=== PATIENT | female | born 1995 | race Caucasian/White ===

== ENCOUNTER 2016-04-30 08:12 | Emergency (ER) | payer OTHER, MEDICAID ==
[~2016-04-30] VITALS: Ht 165.1 cm; Wt 48.5 kg
[~2016-04-30 08:12] MED LIST: INSLANTI SC; INSLISPI SC; METH10T PO
[2016-04-30] MEDS ORDERED: SODIUM CHLORIDE 0.9% 1,000 ML IV ONE (09:36)
[2016-04-30] MEDS ORDERED: cefTRIAXone 1GM/50ML D5W 50 ML IV ONE (09:45)
[2016-04-30] MEDS ORDERED: metroNIDAZOLE 500 MG TAB PO ONE (09:45)
[2016-04-30] MEDS ORDERED: InsuLIN REG 1unit/0.01ml Soln (100units/ml) IV ONE (09:45)
[2016-04-30 13:31] VITALS: BP 97/64
[2016-04-30] MEDS ORDERED: KETOROLAC TROMETH 30 MG/ML 1ML VIAL IV ONE (13:45)
[2016-04-30] MEDS ORDERED: InsuLIN REG 1unit/0.01ml Soln (100units/ml) SC ONE (13:45)
== END 2016-04-30 14:56 | disposition home or self-care (01) ==
LOC: ER 08:12
DX: K02.9 Dental caries, unspecified (principal); E11.65 Type 2 diabetes mellitus with hyperglycemia; Z79.4 Long term (current) use of insulin; F17.210 Nicotine dependence, cigarettes, uncomplicated; Z79.899 Other long term (current) drug therapy
CPT/HCPCS: 82962; 96365; 96372; 96375; 99284; J0696; J1815; J1885; J7030

== ENCOUNTER 2016-05-13 10:44 | Emergency (ER) | payer MEDICAID ==
[~2016-05-13] VITALS: Ht 170.2 cm; Wt 48.5 kg
[2016-05-13 11:47] LABS: Basophils # (auto) 0 uL; Basophils % (auto) 0.4 % (0.0-2.0); DEFINITIVE VIEW TRANSMISSION; Eosinophils # (auto) 0 uL; Eosinophils % (auto) 0.1 % (0.0-7.0); Hematocrit 43.5 % (36.0-46.0); Hemoglobin 13.8 g/dL (12.2-16.2); Lymphocytes # (auto) 1.8 uL; Lymphocytes % (auto) 17.9 % (10.0-50.0); Mean Corpuscular Hemoglobin 26.3 pg (28.0-32.0); Mean Corpuscular Hgb Conc. 31.7 g/dL (32.0-36.0); Mean Corpuscular Volume 82.9 fL (80.0-100.0); Mean Platelet Volume 6.6 fL (7.4-10.4); Monocytes # (auto) 0.2 uL; Neutrophils # (auto) 7.8 uL; Neutrophils % (auto) 79.6 % (37.0-80.0); Platelet Count (auto) 440 10^3/uL (140-450); Red Cell Distribution Width 13.6 % (11.6-16.0); White Blood Cell 9.8 10^3/uL (4.4-10.8)
[2016-05-13 12:07] LABS: Albumin 3.3 g/dL (3.4-5.0); BUN/Creatinine Ratio 16.7; Bilirubin, Total 0.2 mg/dL (0.2-1.0); Magnesium 1.6 mg/dL (1.6-2.6); Potassium 4.3 mmol/L (3.5-5.1); Total Protein 8.5 g/dL (6.4-8.2)
[2016-05-13] MEDS ORDERED: KETOROLAC TROMETH 30 MG/ML 1ML VIAL IV ONE (16:45)
[2016-05-13] MEDS ORDERED: SODIUM CHLORIDE 0.9% 1,000 ML IV ONE (16:45)
[2016-05-13 17:00] LABS: Urine Bilirubin Negative (Negative); Urine Blood Negative /uL (Negative); Urine Color Yellow (Yellow); Urine Ketone TRACE (Negative); Urine Nitrite Negative (Negative); Urine RBC <1 /hpf (0 - 4); Urine Squamous Epithelial Cell FEW /hpf (<5); Urine Urobilinogen Normal (Negative)
[2016-05-13 18:08] LABS: Urine Glucose 4+ mg/dL (Normal)
[2016-05-13] MEDS ORDERED: LORazepam 2MG/ML-1ML VIAL IV ONE (18:30)
[2016-05-13 19:14] VITALS: BP 102/70
== END 2016-05-13 20:16 | disposition home or self-care (01) ==
LOC: EDUNIT# 10:44 → ER 10:45
DX: E11.65 Type 2 diabetes mellitus with hyperglycemia (principal); F41.9 Anxiety disorder, unspecified; Z79.899 Other long term (current) drug therapy; Z79.4 Long term (current) use of insulin; F17.210 Nicotine dependence, cigarettes, uncomplicated; R68.84 Jaw pain
CPT/HCPCS: 36415; 70486; 80053; 81001; 83735; 84702; 85025; 85652; 96361; 96374; 96375; 99285; J1885; J2060; J7030

== ENCOUNTER 2017-11-13 10:12 | Emergency (ER) | payer MEDICAID, OTHER ==
[~2017-11-13] VITALS: Ht 165.1 cm; Wt 57.6 kg
[2017-11-13 10:38] VITALS: BP 128/85
[2017-11-13] MEDS ORDERED: LIDOCAINE 1% HCL (LOCAL ANESTH.) INJ 20ML MDV IJ ONE (11:15)
[2017-11-13] MEDS ORDERED: LIDOCAINE 1% (LOCAL ANESTH.) PF 5ml SDV ONE (11:19)
== END 2017-11-13 11:47 | disposition home or self-care (01) ==
LOC: ER 10:12
DX: L02.416 Cutaneous abscess of left lower limb (principal); F17.210 Nicotine dependence, cigarettes, uncomplicated; E11.9 Type 2 diabetes mellitus without complications
CPT/HCPCS: 10060

== ENCOUNTER 2017-11-16 08:54 | Emergency (ER) | payer OTHER ==
[~2017-11-16] VITALS: Ht 165.1 cm; Wt 57.6 kg
[2017-11-16 10:30] VITALS: BP 101/59
[2017-11-16] MEDS ORDERED: NEOMYCIN-BACITRACIN-POLYM UNITDOSE PKG TOP OINT TOP ONE (10:30)
== END 2017-11-16 10:53 | disposition home or self-care (01) ==
LOC: ER 08:54
DX: L02.416 Cutaneous abscess of left lower limb (principal); E10.65 Type 1 diabetes mellitus with hyperglycemia; F11.20 Opioid dependence, uncomplicated; F17.210 Nicotine dependence, cigarettes, uncomplicated; Z79.4 Long term (current) use of insulin; Z79.899 Other long term (current) drug therapy

== ENCOUNTER 2018-02-05 07:33 | Emergency (ER) | payer MEDICAID ==
[~2018-02-05] VITALS: Ht 165.1 cm; Wt 54.4 kg
[2018-02-05] MEDS ORDERED: SODIUM CHLORIDE 0.9% 1,000 ML IV ONE (08:22)
[2018-02-05 08:29] LABS: Urine Bacteria FEW /hpf (None Seen); Urine Blood Negative /uL (Negative); Urine WBC 1 /hpf (0 - 5)
[2018-02-05] MEDS ORDERED: InsuLIN REG 1unit/0.01ml Soln (100units/ml) IV ONE (08:30)
[2018-02-05 08:42] LABS: Basophils # (auto) 0 uL; Basophils % (auto) 0.2 % (0.0-2.0); Eosinophils # (auto) 0.1 uL; Eosinophils % (auto) 0.8 % (0.0-7.0); Hematocrit 42.2 % (36.0-46.0); Lymphocytes # (auto) 1.3 uL; Lymphocytes % (auto) 14.4 % (10.0-50.0); Mean Corpuscular Hemoglobin 28.9 pg (28.0-32.0); Mean Corpuscular Volume 87.6 fL (80.0-100.0); Monocytes # (auto) 0.4 uL; Monocytes % (auto) 3.8 % (0.0-12.0); Neutrophils # (auto) 7.5 uL; Neutrophils % (auto) 80.8 % (37.0-80.0); Platelet Count (auto) 332 10^3/uL (140-450); Red Blood Cells 4.83 10^6/uL (4.0-5.20); Red Cell Distribution Width 13.1 % (11.8-14.3); White Blood Cell 9.2 10^3/uL (4.4-10.8)
[2018-02-05 08:59] LABS: Albumin 3.4 g/dL (3.4-5.0); Calcium 9.6 mg/dL (8.5-10.1); Potassium 4.7 mmol/L (3.5-5.1)
[2018-02-05 09:02] LABS: BUN/Creatinine Ratio 16.5; Bilirubin, Total 0.5 mg/dL (0.2-1.0); Total Protein 8.4 g/dL (6.4-8.2)
[2018-02-05 10:33] VITALS: BP 112/76
== END 2018-02-05 10:40 | disposition home or self-care (01) ==
LOC: ER 07:33
DX: E10.65 Type 1 diabetes mellitus with hyperglycemia (principal); F17.210 Nicotine dependence, cigarettes, uncomplicated; F41.9 Anxiety disorder, unspecified; F11.10 Opioid abuse, uncomplicated; F15.10 Other stimulant abuse, uncomplicated; Z79.4 Long term (current) use of insulin
CPT/HCPCS: 36415; 80053; 81001; 81025; 82150; 82962; 83690; 85025; 96374; 99284; J1815

== ENCOUNTER 2019-02-10 09:13 | Inpatient (IN) | payer MEDICAID ==
[~2019-02-10] VITALS: Ht 165.1 cm; Wt 66.6 kg
[2019-02-10] MEDS ORDERED: SODIUM CHLORIDE 0.9% 1,000 ML IV ONE ×3 (09:20→11:15)
[2019-02-10 09:43] LABS: Urine Bacteria NONE SEEN /hpf (None Seen); Urine Blood Negative /uL (Negative); Urine Budding Yeast OCCASIONAL /hpf (None Seen); Urine WBC <1 /hpf (0 - 5)
[2019-02-10 09:53] LABS: Basophils # (auto) 0 uL; Basophils % (auto) 0.2 % (0.0-2.0); Eosinophils # (auto) 0 uL; Eosinophils % (auto) 0.1 % (0.0-7.0); Hematocrit 49.6 % (36.0-46.0); Hemoglobin 15.8 g/dL (12.2-16.2); Lymphocytes # (auto) 1.8 uL; Lymphocytes % (auto) 15.2 % (10.0-50.0); Mean Corpuscular Hemoglobin 29.4 pg (28.0-32.0); Mean Corpuscular Hgb Conc. 31.8 g/dL (32.0-36.0); Mean Corpuscular Volume 92.3 fL (80.0-100.0); Monocytes # (auto) 0.3 uL; Monocytes % (auto) 2.5 % (0.0-12.0); Neutrophils # (auto) 9.4 uL; Platelet Count (auto) 352 10^3/uL (140-450); Red Blood Cells 5.37 10^6/uL (4.0-5.20); Red Cell Distribution Width 13.8 % (11.8-14.3); White Blood Cell 11.5 10^3/uL (4.4-10.8)
[2019-02-10 10:09] LABS: Albumin 3.8 g/dL (3.4-5.0); Anion Gap 18 (5-15); Blood Urea Nitrogen 15 mg/dL (7-18); Calcium 8.9 mg/dL (8.5-10.1); Carbon Dioxide 14 mmol/L (21-32); Chloride 99 mmol/L (98-107); GFR African American 102 mL/min; GFR Non-African American 85 mL/min; Glucose 373 mg/dL (74-106); Potassium 4.2 mmol/L (3.5-5.1); Sodium 131 mmol/L (136-145)
[2019-02-10 10:12] LABS: Alanine Aminotransferase 38 U/L (13-56); Alkaline Phosphatase 144 U/L (45-117); Aspartate Aminotransferase 22 U/L (15-37); Bilirubin, Total 0.4 mg/dL (0.2-1.0); Total Protein 8.8 g/dL (6.4-8.2)
[2019-02-10] MEDS ORDERED: InsuLIN REG 1unit/0.01ml Soln (100units/ml) IV ONE (11:15)
[2019-02-10] MEDS ORDERED: NITROGLYCERIN 0.4 MG SL TAB SL PRN (13:00)
[2019-02-10] MEDS ORDERED: ACETAMINOPHEN 500 MG TAB PO PRN (13:00)
[2019-02-10] MEDS ORDERED: MORPHINE SULF INJ 2 MG/ML SYRINGE 1ML IV PRN ×2 (13:00)
[2019-02-10] MEDS ORDERED: INSULIN LANTUS (GLARGINE) 1 /0.01ml (100units/ml) SC ONE (13:00)
[2019-02-10] MEDS ORDERED: SODIUM CHLORIDE 0.9% 1,000 ML IV SCH (13:00)
[2019-02-10] MEDS ORDERED: DEXTROSE (50%) 50ML SYRG IV PRN (13:00)
[2019-02-10] MEDS ORDERED: ONDANSETRON HCL 4 MG/2 ML VIAL IV PRN (13:00)
[2019-02-10] MEDS ORDERED: HYDROcodone-ACET 5/325MG TAB PO PRN (13:00)
[2019-02-10] MEDS ORDERED: FAMOTIDINE (10MG/ML) 2ML VL IV ONE (13:30)
--- NOTE | 2019-02-10 15:00 | NUR ---
CAME ON WC FROM ER, ALERT AND ORIENTED X4, NOT IN DISTRESS, CLEAR LS IN BILATERAL IN UPPER AND LOWER LUNG LOBES, RR=18 SAT=99%,P=113 DI=864/69. S TACH ON TELE MONITOR, DENIED CHEST PAIN AND SOB, ABDOMEN SOFT WITH ACTIVE BS, LAST BM=02/09/19 REPORTED, SKIN INTACT WARM TO TOUCH, RADIAL AND PEDAL PULSES PALPABLE, CAPILLARY REFILL >3 SECONDS, DENIED PAIN, AMBULATED IN THE ROOM AND NO RESTRICTION NOTED, RESTING ON BED, WILL CONTINUE MONITORING.
--- NOTE | 2019-02-10 15:53 | NUR ---
AMA FOR SMOKING SIGNED AND ON CHART, AMBULATED OUT OF THE UNIT FOR SMOKING, BACK TO THE ROOM, RESTING ON BED AT THIS MOMENT.
[2019-02-10] MEDS: InsuLIN REG 1unit/0.01ml Soln (100units/ml) SC SCH ×3 (16:00→23:56)
[2019-02-10] MEDS: ACCU-CHEK COMFORT CURVE STRIP VI SCH ×3 (16:00→23:56)
[2019-02-10 16:25] LABS: BUN/Creatinine Ratio 19.4; Calcium 8.2 mg/dL (8.5-10.1); Potassium 3.7 mmol/L (3.5-5.1)
--- NOTE | 2019-02-10 18:00 | NUR ---
BS=97, HOSPITALIST WAS CALLED FOR DIET FOLLOW UP AND UPDATES WAITING FOR CALL BACK.
[2019-02-10] MEDS: LACTATED RINGER'S 1,000 ML IV SCH (18:15)
[2019-02-10] MEDS ORDERED: POTASSIUM PHOSPHATE 22 MEQ in SODIUM CHL 0.9% 100 ML IV ONE (18:15)
--- NOTE | 2019-02-10 19:00 | NUR ---
OPENING NOTE Received report from day shift RN. Patient is A&O X's 4 with no s/s of distress and reports no pain. Patient sitting at edge of bed, eating her dinner. Educated patient on POC and to use call light when in need of assistance. Patient verbalized understanding. Bed is in lowest/locked position with side rails up X's 2 and call light is within reach of patient. Will continue care.
[2019-02-10] MEDS: FAMOTIDINE (10MG/ML) 2ML VL IV SCH (20:14)
[2019-02-10 21:30] VITALS: BP 100/57
[2019-02-11] MEDS: LACTATED RINGER'S 1,000 ML IV SCH ×3 (02:15→20:09)
[2019-02-11] MEDS: InsuLIN REG 1unit/0.01ml Soln (100units/ml) SC SCH ×5 (04:00→20:49)
[2019-02-11] MEDS: ACCU-CHEK COMFORT CURVE STRIP VI SCH ×5 (04:02→20:49)
[2019-02-11 05:00] VITALS: BP 118/70
[2019-02-11] MEDS: INSULIN LANTUS (GLARGINE) 1 /0.01ml (100units/ml) SC SCH (06:24)
--- NOTE | 2019-02-11 08:00 | NUR ---
Received patient alert and oriented x4, not in distress, clear lung sounds in bilateral upper and lower lung lobes, RR=18, deep breathing and coughing encouraged, demonstrated well, SR R=94 on Tele monitor, denied SOB and chest pain or discomfort, abdomen soft with active BS, tolerating Diabetic diet well, last BM this morning as reported, out of bed and ambulated around the unit for smoking, back to the room, smoking education was provided, verbalized understanding, resting on bed, denied pain, head of bed elevated, bed on low position, rails up x2, call light on reach, will continue monitoring.
[2019-02-11 09:00] VITALS: BP 117/77
[2019-02-11 09:24] LABS: BUN/Creatinine Ratio 19.7; Calcium 8.2 mg/dL (8.5-10.1); Magnesium 1.7 mg/dL (1.6-2.6); Potassium 3.5 mmol/L (3.5-5.1)
[2019-02-11 09:28] LABS: Basophils # (auto) 0.1 uL; Basophils % (auto) 0.6 % (0.0-2.0); Eosinophils # (auto) 0.1 uL; Eosinophils % (auto) 1.4 % (0.0-7.0); Hematocrit 36.3 % (36.0-46.0); Hemoglobin 11.9 g/dL (12.2-16.2); Lymphocytes # (auto) 3.2 uL; Lymphocytes % (auto) 35.3 % (10.0-50.0); Mean Corpuscular Hemoglobin 29.3 pg (28.0-32.0); Mean Corpuscular Hgb Conc. 32.7 g/dL (32.0-36.0); Mean Corpuscular Volume 89.4 fL (80.0-100.0); Monocytes # (auto) 0.5 uL; Monocytes % (auto) 5.5 % (0.0-12.0); Neutrophils # (auto) 5.1 uL; Neutrophils % (auto) 57.2 % (37.0-80.0); Nucleated Red Blood Cells % 0.1 %; Platelet Count (auto) 302 10^3/uL (140-450); Red Blood Cells 4.06 10^6/uL (4.0-5.20); Red Cell Distribution Width 13.8 % (11.8-14.3)
[2019-02-11] MEDS: FAMOTIDINE (10MG/ML) 2ML VL IV SCH ×2 (09:38→22:05)
[2019-02-11 13:00] VITALS: BP 136/93
[2019-02-11 17:00] VITALS: BP 118/88
--- NOTE | 2019-02-11 19:00 | NUR ---
OPENING NOTE Received report from day shift RN. Patient is A&O X's 4 with no s/s of distress noted. Educated patient on POC and to use call light when in need of assistance. Patient verbalized understanding. Bed is in lowest/locked position with side rails up X's 2 and call light is within reach of patient. Will continue care.
--- NOTE | 2019-02-11 20:33 | NUR ---
NOT IN DISTRESS, DENIED PAIN, TOLERATED DIET WELL, IN AND OUT OF THE UNIT FOR SMOKING, RESTING ON BED, DENIED PAIN, REPORT WAS GIVEN TO THE CAT AND DOG BATHER RN.
[2019-02-11 22:00] VITALS: BP 110/79
[2019-02-11] MEDS ORDERED: INSULIN LANTUS (GLARGINE) 1 /0.01ml (100units/ml) SC ONE (22:30)
[2019-02-12] MEDS: ACCU-CHEK COMFORT CURVE STRIP VI SCH ×4 (00:17→11:57)
[2019-02-12] MEDS: InsuLIN REG 1unit/0.01ml Soln (100units/ml) SC SCH ×4 (03:52→11:58)
[2019-02-12] MEDS: LACTATED RINGER'S 1,000 ML IV SCH ×2 (04:13→10:15)
--- NOTE | 2019-02-12 04:13 | NUR ---
BLOOD SUGAR Blood sugar was low at 51. Patient is A&O X's 4 with no s/s of distress. She reports feeling a little shaky but denies any other symptoms. Provided patient with juice and crackers. Patient eating and drinking well. Rechecked blood sugar. It was 163. She reports feeling better. Will continue care.
[2019-02-12 05:00] VITALS: BP 131/78
[2019-02-12] MEDS: INSULIN LANTUS (GLARGINE) 1 /0.01ml (100units/ml) SC SCH (06:43)
--- NOTE | 2019-02-12 07:30 | NUR ---
Opening Shift Note Assumed care of patient, awake and alert. No S/S of distress/SOB or pain. Bed is in lowest position with 2x side rails up for safety. Call light is within reach. Instructed on POC and to call for assist PRN, will continue to monitor for changes Q1hr and PRN.
[2019-02-12 07:58] LABS: BUN/Creatinine Ratio 15.5; Potassium 3.3 mmol/L (3.5-5.1)
[2019-02-12 08:00] VITALS: BP 103/69
[2019-02-12 09:00] VITALS: BP 103/69
[2019-02-12] MEDS: FAMOTIDINE (10MG/ML) 2ML VL IV SCH (09:57)
--- NOTE | 2019-02-12 12:28 | NUR ---
Nutrition Assessment Notes please see attached link for complete assessment Est. Needs based on BW (66 kg): 6568-2185 kcal (25-30 kcal/kgBW), 66-79 gms pro (1.0-1.2 gms/kgBW). Will continue to monitor pertinent labs and reassess nutrient need prn Addendum: 02/12/19 at [address] Amended: Links added.
[2019-02-12] MEDS ORDERED: POTASSIUM EFFERVESENT TAB 25 MEQ GT ONE (12:30)
[2019-02-12 13:15] VITALS: BP 103/69
--- NOTE | 2019-02-12 14:03 | NUR ---
Discharge instructions given as ordered. Encourage to follow up with PMD as instructed. All questions and concerns addressed. Patient verbalized understanding. Medication reconciliation form completed and copy given to patient. IV removed with catheter intact, pressure dressing applied. Telemetry unit returned to ICU. Patient ambulated to vehicle with all personal belongings. No distress noted at time of departure.
== END 2019-02-12 14:01 | disposition home or self-care (01) | DRG 420 ==
LOC: EDBD 09:13 → ER 09:16 → TELE 09:17 → TELE-CENTR 15:00
PROVIDERS: ADMIT Nurse Practitioner Acute Care; ATTEND Internal Medicine Nephrology
DX: E10.10 Type 1 diabetes mellitus with ketoacidosis without coma (principal); D72.829 Elevated white blood cell count, unspecified; Z91.19 Patient's noncompliance with other medical treatment and regimen; F41.9 Anxiety disorder, unspecified
CPT/HCPCS: 36415; 71046; 80048; 80053; 81001; 82962; 83036; 83735; 84100; 84443; 84702; 85025; 87081; 93005; 96361; 96372; 96374; 96375; G0378; J1815; J3490

== ENCOUNTER 2019-04-20 19:23 | Emergency (ER) | payer MEDICAID ==
[~2019-04-20] VITALS: Ht 170.2 cm; Wt 61.2 kg
[2019-04-20 19:52] LABS: Basophils # (auto) 0.1 uL; Eosinophils # (auto) 0 uL; Hematocrit 47.6 % (36.0-46.0); Lymphocytes # (auto) 1.9 uL
[2019-04-20 19:53] LABS: Basophils % (auto) 0.7 % (0.0-2.0); Hemoglobin 15.8 g/dL (12.2-16.2); Lymphocytes % (auto) 19.2 % (10.0-50.0); Mean Corpuscular Hemoglobin 28.9 pg (28.0-32.0); Mean Corpuscular Hgb Conc. 33.2 g/dL (32.0-36.0); Mean Corpuscular Volume 86.8 fL (80.0-100.0); Monocytes # (auto) 0.6 uL; Monocytes % (auto) 6.1 % (0.0-12.0); Neutrophils # (auto) 7.1 uL; Platelet Count (auto) 478 10^3/uL (140-450); Red Blood Cells 5.49 10^6/uL (4.0-5.20); Red Cell Distribution Width 14.2 % (11.8-14.3); White Blood Cell 9.7 10^3/uL (4.4-10.8)
[2019-04-20 20:02] LABS: Urine Bacteria NONE SEEN /hpf (None Seen); Urine Blood TRACE /uL (Negative); Urine Hyaline Cast FEW /lpf (0 - 2); Urine Mucus FEW (None Seen); Urine WBC 7 /hpf (0 - 5)
[2019-04-20 20:15] LABS: Albumin 3.8 g/dL (3.4-5.0); Calcium 9.9 mg/dL (8.5-10.1); Potassium 3.5 mmol/L (3.5-5.1)
[2019-04-20 20:19] LABS: Bilirubin, Total 0.5 mg/dL (0.2-1.0); Total Protein 9.2 g/dL (6.4-8.2)
[2019-04-21 07:16] VITALS: BP 102/73
== END 2019-04-21 08:39 | disposition home or self-care (01) ==
LOC: ER 19:23 → EDBD 19:23 → ER 04-21 08:39
DX: N39.0 Urinary tract infection, site not specified (principal); E11.9 Type 2 diabetes mellitus without complications; F17.210 Nicotine dependence, cigarettes, uncomplicated
CPT/HCPCS: 36415; 74176; 80053; 81001; 81025; 82010; 82962; 83036; 83690; 85025; 87804

== ENCOUNTER 2020-09-19 08:33 | Inpatient (IN) | payer MEDICAID ==
[~2020-09-19] VITALS: Ht 165.1 cm; Wt 56.0 kg
[2020-09-19] MEDS ORDERED: InsuLIN R (HUMAN) 100 UNITS in SODIUM CHL 0.9% 99 ML IV SCH ×2 (08:45→14:00)
[2020-09-19] MEDS ORDERED: DEXTROSE (50%) 50ML SYRG IV PRN ×3 (08:45→16:15)
[2020-09-19] MEDS ORDERED: INSULIN LANTUS (GLARGINE) 1 /0.01ml (100units/ml) SC ONE ×2 (08:45→14:00)
[2020-09-19] MEDS: SODIUM CHLORIDE 0.9% 1,000 ML IV SCH ×4 (09:07→23:53)
[2020-09-19 09:22] LABS: Basophils # (auto) 0 10 ^3/uL (0-0.2); Basophils % (auto) 0.2 % (0.0-2.0); Eosinophils # (auto) 0 10 ^3/uL (0-0.8); Eosinophils % (auto) 0.2 % (0.0-7.0); Hematocrit 44.8 % (36.0-46.0); Hemoglobin 14.7 g/dL (12.2-16.2); Lymphocytes # (auto) 2.5 10 ^3/uL (0.4-5.4); Lymphocytes % (auto) 20.9 % (10.0-50.0); Mean Corpuscular Hemoglobin 28.5 pg (28.0-32.0); Mean Corpuscular Hgb Conc. 32.9 g/dL (32.0-36.0); Mean Corpuscular Volume 86.6 fL (80.0-100.0); Monocytes # (auto) 0.5 10 ^3/uL (0-1.3); Monocytes % (auto) 4.1 % (0.0-12.0); Neutrophils # (auto) 9.1 10 ^3/uL (1.6-8.6); Neutrophils % (auto) 74.6 % (37.0-80.0); Platelet Count (auto) 377 10^3/uL (140-450); Red Blood Cells 5.18 10^6/uL (4.0-5.20); Red Cell Distribution Width 14.5 % (11.8-14.3); White Blood Cell 12.2 10^3/uL (4.4-10.8)
[2020-09-19 09:39] LABS: BUN/Creatinine Ratio 24.2; Calcium 9.7 mg/dL (8.5-10.1); Magnesium 1.9 mg/dL (1.6-2.6); Phosphorus 3.7 mg/dL (2.5-4.90); Potassium 4.5 mmol/L (3.5-5.1)
[2020-09-19] MEDS: ACCU-CHEK COMFORT CURVE STRIP VI SCH ×5 (09:45→23:57)
[2020-09-19] MEDS ORDERED: InsuLIN REG 1unit/0.01ml Soln (100units/ml) IV ONE (09:45)
[2020-09-19] MEDS ORDERED: METHADONE HCL 10 MG TAB PO ONE (12:15)
[2020-09-19] MEDS ORDERED: SODIUM CHLORIDE 0.9% 1,000 ML IV SCH ×2 (12:45→14:45)
[2020-09-19] MEDS ORDERED: LACTULOSE 20Gm/30ML SOLN PO ONE (14:00)
[2020-09-19] MEDS ORDERED: POLYETHYLENE GLYCOL 17 GM PWDR PO ONE (14:00)
[2020-09-19] MEDS ORDERED: ONDANSETRON HCL 4 MG/2 ML VIAL IV PRN (14:00)
[2020-09-19 14:52] LABS: BUN/Creatinine Ratio 27.9; Calcium 8.6 mg/dL (8.5-10.1); Potassium 4.2 mmol/L (3.5-5.1)
[2020-09-19] MEDS ORDERED: ACCU-CHEK COMFORT CURVE STRIP VI SCH (15:00)
[2020-09-19] MEDS: DOCUSATE SOD 100 MG CAP PO SCH ×2 (15:58→21:14)
[2020-09-19 19:59] LABS: BUN/Creatinine Ratio 22.3; Calcium 8.9 mg/dL (8.5-10.1); Potassium 4.1 mmol/L (3.5-5.1)
[2020-09-19] MEDS: GABAPENTIN 300 MG CAP PO SCH (21:14)
[2020-09-19] MEDS: HYDROcodone-ACET 5/325MG TAB PO PRN (21:14)
[2020-09-19] MEDS: InsuLIN REG 1unit/0.01ml Soln (100units/ml) SC SCH ×2 (21:47→23:57)
[2020-09-19 21:54] VITALS: BP 101/70
[2020-09-19 22:00] VITALS: BP 101/70
[2020-09-19 22:15] LABS: Urine Bacteria FEW /hpf (None Seen); Urine Blood TRACE /uL (Negative); Urine Specific Gravity 1.021 (1.001-1.035); Urine WBC 48 /hpf (0 - 5)
[2020-09-19 22:29] LABS: Alcohol, Urine < 3.0 mg/dL (0-10); Barbiturate Scree,Urine NEGATIVE (NEGATIVE); Benzodiazephine Screen, Urine NEGATIVE (NEGATIVE); Cannabinoid Screen, Urine POSITIVE (NEGATIVE); Cocaine Screen, Urine NEGATIVE (NEGATIVE); Opiate Scree,Urine POSITIVE (NEGATIVE); Phencyclidine Screen, Urine NEGATIVE (NEGATIVE)
[2020-09-19 22:37] LABS: Amphetamine Screen, Urine POSITIVE (NEGATIVE)
[2020-09-19 22:59] LABS: BUN/Creatinine Ratio 21.4; Calcium 8.4 mg/dL (8.5-10.1); Potassium 3.8 mmol/L (3.5-5.1)
[2020-09-20 02:38] LABS: Anion Gap 10 (5-15); BUN/Creatinine Ratio 18.6; Blood Urea Nitrogen 19 mg/dL (7-18); Carbon Dioxide 21 mmol/L (21-32); Chloride 105 mmol/L (98-107); GFR African American 85 mL/min; GFR Non-African American 70 mL/min; Glucose 270 mg/dL (74-106); Potassium 4.3 mmol/L (3.5-5.1); Sodium 136 mmol/L (136-145)
[2020-09-20] MEDS: ACCU-CHEK COMFORT CURVE STRIP VI SCH ×5 (03:57→20:06)
[2020-09-20] MEDS: InsuLIN REG 1unit/0.01ml Soln (100units/ml) SC SCH ×5 (03:59→20:11)
[2020-09-20] MEDS: GABAPENTIN 300 MG CAP PO SCH ×3 (05:55→21:32)
[2020-09-20 06:15] VITALS: BP 100/61
[2020-09-20 06:53] LABS: BUN/Creatinine Ratio 19.2; Calcium 8.1 mg/dL (8.5-10.1); Potassium 3.9 mmol/L (3.5-5.1)
[2020-09-20 09:00] VITALS: BP 96/59
[2020-09-20] MEDS: SODIUM CHLORIDE 0.9% 1,000 ML IV SCH ×2 (10:19→20:07)
[2020-09-20] MEDS: DOCUSATE SOD 100 MG CAP PO SCH ×2 (10:28→21:32)
[2020-09-20] MEDS: INSULIN LANTUS (GLARGINE) 1 /0.01ml (100units/ml) SC SCH (10:35)
[2020-09-20] MEDS: METHADONE HCL 10 MG TAB PO SCH (10:38)
[2020-09-20 11:10] LABS: Calcium 8.5 mg/dL (8.5-10.1); Potassium 4.2 mmol/L (3.5-5.1)
[2020-09-20 11:12] LABS: BUN/Creatinine Ratio 18.6
[2020-09-20 13:00] VITALS: BP 94/61
[2020-09-20] MEDS ORDERED: NITR-87 PO (16:11)
[2020-09-20] MEDS ORDERED: INSU100I44 SC (16:11)
[2020-09-20] MEDS ORDERED: BLOO-200 XX (16:11)
[2020-09-20] MEDS ORDERED: INSU-829 XX (16:11)
[2020-09-20] MEDS ORDERED: INSU31MI XX (16:11)
[2020-09-20] MEDS ORDERED: INSLANTI SC (16:11)
[2020-09-20] MEDS ORDERED: DOCU-94 PO (16:18)
[2020-09-20 16:34] VITALS: BP 99/61
[2020-09-20] MEDS: NITROFURANTOIN 100 mg CAP PO SCH ×2 (17:33→21:32)
[2020-09-20] MEDS: HYDROcodone-ACET 5/325MG TAB PO PRN (20:02)
[2020-09-20 22:00] VITALS: BP 102/74
[2020-09-21] MEDS: HYDROcodone-ACET 5/325MG TAB PO PRN ×2 (00:16→04:27)
[2020-09-21] MEDS: ACCU-CHEK COMFORT CURVE STRIP VI SCH ×3 (00:29→08:00)
[2020-09-21] MEDS: InsuLIN REG 1unit/0.01ml Soln (100units/ml) SC SCH ×3 (00:30→09:09)
[2020-09-21] MEDS: SODIUM CHLORIDE 0.9% 1,000 ML IV SCH (05:31)
[2020-09-21] MEDS: GABAPENTIN 300 MG CAP PO SCH (05:31)
[2020-09-21 05:38] VITALS: BP 101/77
[2020-09-21] MEDS: DOCUSATE SOD 100 MG CAP PO SCH (10:21)
[2020-09-21] MEDS: NITROFURANTOIN 100 mg CAP PO SCH (10:21)
[2020-09-21] MEDS: METHADONE HCL 10 MG TAB PO SCH (10:23)
[2020-09-21] MEDS: INSULIN LANTUS (GLARGINE) 1 /0.01ml (100units/ml) SC SCH (10:26)
== END 2020-09-21 12:00 | disposition home or self-care (01) | DRG 420 ==
LOC: ER 08:33 → EDBD 08:33 → TELE 13:59 → EAST 20:49
PROVIDERS: ADMIT Internal Medicine; ATTEND Internal Medicine
DX: E10.10 Type 1 diabetes mellitus with ketoacidosis without coma (principal); N17.9 Acute kidney failure, unspecified; E10.42 Type 1 diabetes mellitus with diabetic polyneuropathy; F11.20 Opioid dependence, uncomplicated; G89.4 Chronic pain syndrome; K59.00 Constipation, unspecified; Z59.0 Homelessness; Z20.822 Contact with and (suspected) exposure to COVID-19; F17.210 Nicotine dependence, cigarettes, uncomplicated; Z79.4 Long term (current) use of insulin; Z79.899 Other long term (current) drug therapy; Z91.14 Patient's other noncompliance with medication regimen; F41.9 Anxiety disorder, unspecified; N39.0 Urinary tract infection, site not specified
CPT/HCPCS: 36415; 36600; 74176; 80048; 80307; 81001; 82010; 82805; 82962; 83036; 83735; 83930; 84100; 85025; 87426; 93005; 96361; 96372; 96374; G0378; J1815; J2405

== ENCOUNTER 2020-09-23 00:10 | Inpatient (IN) | payer MEDICAID ==
[~2020-09-23] VITALS: Ht 165.1 cm; Wt 57.6 kg
[~2020-09-23 00:10] MED LIST changes: +BLOO-200 XX; +DOCU-94 PO; -INSLISPI SC; +INSU-829 XX; +INSU100I44 SC; +INSU31MI XX; +NITR-87 PO
[2020-09-23] MEDS ORDERED: SODIUM CHLORIDE 0.9% 1,000 ML IV ONE (01:00)
[2020-09-23] MEDS ORDERED: ONDANSETRON HCL 4 MG/2 ML VIAL ONE (01:09)
[2020-09-23] MEDS ORDERED: FAMOTIDINE (10MG/ML) 2ML VL IV ONE ×2 (01:10→01:45)
[2020-09-23 01:32] LABS: Urine Bacteria NONE SEEN /hpf (None Seen); Urine Blood Negative /uL (Negative); Urine Specific Gravity 1.018 (1.001-1.035); Urine WBC 1 /hpf (0 - 5)
[2020-09-23 01:40] LABS: Alcohol, Urine < 3.0 mg/dL (0-10); Amphetamine Screen, Urine NEGATIVE (NEGATIVE); Barbiturate Scree,Urine NEGATIVE (NEGATIVE); Benzodiazephine Screen, Urine NEGATIVE (NEGATIVE); Cannabinoid Screen, Urine NEGATIVE (NEGATIVE); Cocaine Screen, Urine NEGATIVE (NEGATIVE); Opiate Scree,Urine NEGATIVE (NEGATIVE); Phencyclidine Screen, Urine NEGATIVE (NEGATIVE)
[2020-09-23] MEDS ORDERED: ONDANSETRON HCL 4 MG/2 ML VIAL IV ONE (01:45)
[2020-09-23 01:59] LABS: Basophils # (auto) 0 10 ^3/uL (0-0.2); Basophils % (auto) 0.5 % (0.0-2.0); Eosinophils # (auto) 0 10 ^3/uL (0-0.8); Eosinophils % (auto) 0.4 % (0.0-7.0); Hematocrit 38.9 % (36.0-46.0); Hemoglobin 12.5 g/dL (12.2-16.2); Lymphocytes # (auto) 2.3 10 ^3/uL (0.4-5.4); Lymphocytes % (auto) 26.9 % (10.0-50.0); Mean Corpuscular Hemoglobin 28.2 pg (28.0-32.0); Mean Corpuscular Hgb Conc. 32.1 g/dL (32.0-36.0); Mean Corpuscular Volume 87.8 fL (80.0-100.0); Monocytes # (auto) 0.3 10 ^3/uL (0-1.3); Monocytes % (auto) 3.7 % (0.0-12.0); Neutrophils # (auto) 5.9 10 ^3/uL (1.6-8.6); Neutrophils % (auto) 68.5 % (37.0-80.0); Nucleated Red Blood Cells % 0.1 %; Red Blood Cells 4.44 10^6/uL (4.0-5.20); Red Cell Distribution Width 14.9 % (11.8-14.3); White Blood Cell 8.6 10^3/uL (4.4-10.8)
[2020-09-23 02:17] LABS: Albumin 3.4 g/dL (3.4-5.0); Calcium 9.1 mg/dL (8.5-10.1); Potassium 4.7 mmol/L (3.5-5.1)
[2020-09-23 02:21] LABS: Bilirubin, Total 0.6 mg/dL (0.2-1.0); Total Protein 7.8 g/dL (6.4-8.2)
[2020-09-23 02:53] LABS: BUN/Creatinine Ratio 20.9
[2020-09-23] MEDS ORDERED: DEXTROSE (50%) 50ML SYRG IV PRN ×3 (03:00→12:45)
[2020-09-23] MEDS ORDERED: InsuLIN R (HUMAN) 100 UNITS in SODIUM CHL 0.9% 99 ML IV SCH ×2 (03:00→03:15)
[2020-09-23] MEDS ORDERED: InsuLIN REG 1unit/0.01ml Soln (100units/ml) ONE (03:03)
[2020-09-23] MEDS: ACCU-CHEK COMFORT CURVE STRIP VI SCH ×12 (03:15→22:26)
[2020-09-23] MEDS ORDERED: ACETAMINOPHEN 325 MG TAB PO ONE ×2 (05:00)
[2020-09-23] MEDS ORDERED: MORPHINE SULFATE INJECTION 2 MG/ML SYRG IV PRN (05:45)
[2020-09-23] MEDS ORDERED: NITROGLYCERIN 0.4 MG SL TAB SL PRN (05:45)
[2020-09-23] MEDS ORDERED: HYDROcodone-ACET 5/325MG TAB PO PRN (05:45)
[2020-09-23] MEDS ORDERED: DOCUSATE SOD 100 MG CAP PO PRN (05:45)
[2020-09-23] MEDS ORDERED: ACETAMINOPHEN 325 MG TAB PO PRN (05:45)
[2020-09-23] MEDS: SODIUM CHLORIDE 0.9% 1,000 ML IV SCH ×2 (06:04→15:45)
[2020-09-23] MEDS: InsuLIN R (HUMAN) 100 UNITS in SODIUM CHL 0.9% 99 ML IV SCH ×2 (06:23→07:31)
[2020-09-23] MEDS ORDERED: INSULIN LANTUS (GLARGINE) 1 /0.01ml (100units/ml) SC SCH (07:00)
[2020-09-23] MEDS: InsuLIN REG 1unit/0.01ml Soln (100units/ml) SC SCH ×6 (08:00→22:29)
[2020-09-23 08:13] LABS: Basophils # (auto) 0.1 10 ^3/uL (0-0.2); Basophils % (auto) 1.3 % (0.0-2.0); Eosinophils # (auto) 0 10 ^3/uL (0-0.8); Eosinophils % (auto) 0.3 % (0.0-7.0); Hematocrit 37.5 % (36.0-46.0); Hemoglobin 12.4 g/dL (12.2-16.2); Lymphocytes # (auto) 3.3 10 ^3/uL (0.4-5.4); Lymphocytes % (auto) 32.7 % (10.0-50.0); Mean Corpuscular Hemoglobin 28.2 pg (28.0-32.0); Mean Corpuscular Hgb Conc. 33.2 g/dL (32.0-36.0); Mean Corpuscular Volume 85.1 fL (80.0-100.0); Monocytes # (auto) 0.5 10 ^3/uL (0-1.3); Monocytes % (auto) 4.6 % (0.0-12.0); Neutrophils # (auto) 6.1 10 ^3/uL (1.6-8.6); Neutrophils % (auto) 61.1 % (37.0-80.0); Nucleated Red Blood Cells % 0.2 %; Red Blood Cells 4.41 10^6/uL (4.0-5.20); Red Cell Distribution Width 14.5 % (11.8-14.3)
[2020-09-23 08:39] LABS: Albumin 3.1 g/dL (3.4-5.0); BUN/Creatinine Ratio 18.7; Calcium 8.7 mg/dL (8.5-10.1); Potassium 3.8 mmol/L (3.5-5.1)
[2020-09-23 08:40] LABS: Bilirubin, Total 0.3 mg/dL (0.2-1.0); Total Protein 7.6 g/dL (6.4-8.2)
[2020-09-23] MEDS: METHADONE HCL 10 MG TAB PO SCH (10:00)
[2020-09-23] MEDS ORDERED: FAMOTIDINE INJECTION 40 MG in SODIUM CHL 0.9% 100 ML IV SCH (10:00)
[2020-09-23] MEDS: ENOXAPARIN SOD 40 MG/0.4 ML SYRINGE SC SCH (10:19)
[2020-09-23] MEDS: MULTIPLE VITAMIN TAB PO SCH (10:19)
[2020-09-23] MEDS: ZINC SULFATE 220mg CAP or TAB PO SCH (10:19)
[2020-09-23] MEDS: ASCORBIC ACID 500 MG TAB PO SCH ×2 (10:19→22:26)
[2020-09-23 11:46] LABS: Calcium 8.6 mg/dL (8.5-10.1); Potassium 3.6 mmol/L (3.5-5.1)
[2020-09-23 11:49] LABS: Phosphorus 2.9 mg/dL (2.5-4.90)
[2020-09-23 13:30] VITALS: BP 107/57
[2020-09-23 17:22] VITALS: BP 97/55
[2020-09-23] MEDS: MORPHINE SULFATE 4 MG/ML SYR/VIAL IV PRN (20:29)
[2020-09-23] MEDS: ONDANSETRON HCL 4 MG/2 ML VIAL IV PRN (20:30)
[2020-09-23 22:00] VITALS: BP 96/51
[2020-09-24] MEDS: MORPHINE SULFATE 4 MG/ML SYR/VIAL IV PRN ×4 (00:41→20:33)
[2020-09-24] MEDS: ONDANSETRON HCL 4 MG/2 ML VIAL IV PRN ×3 (00:41→08:59)
[2020-09-24] MEDS: SODIUM CHLORIDE 0.9% 1,000 ML IV SCH ×3 (02:45→23:02)
[2020-09-24] MEDS: InsuLIN REG 1unit/0.01ml Soln (100units/ml) SC SCH ×6 (04:00→21:55)
[2020-09-24 05:00] VITALS: BP 104/70
[2020-09-24 05:08] LABS: Hematocrit 36.4 % (36.0-46.0); Mean Corpuscular Hemoglobin 27.8 pg (28.0-32.0); Mean Corpuscular Hgb Conc. 32.9 g/dL (32.0-36.0); Mean Corpuscular Volume 84.4 fL (80.0-100.0); Red Blood Cells 4.31 10^6/uL (4.0-5.20); Red Cell Distribution Width 14.9 % (11.8-14.3); White Blood Cell 9.2 10^3/uL (4.4-10.8)
[2020-09-24 05:14] LABS: Basophils % (manual) 0 (0.0-2.0); Blast Cells 0; Metamyelocytes % 0; Myelocytes % 0; Promyelocytes % 0; Reactive Lymphocytes 0
[2020-09-24 05:24] LABS: Alanine Aminotransferase 31 U/L (13-56); Albumin 2.8 g/dL (3.4-5.0); Anion Gap 8 (5-15); Aspartate Aminotransferase 32 U/L (15-37); BUN/Creatinine Ratio 19.3; Blood Urea Nitrogen 17 mg/dL (7-18); Calcium 8.3 mg/dL (8.5-10.1); Carbon Dioxide 22 mmol/L (21-32); Chloride 108 mmol/L (98-107); GFR African American 101 mL/min; GFR Non-African American 83 mL/min; Glucose 105 mg/dL (74-106); Sodium 138 mmol/L (136-145)
[2020-09-24 05:27] LABS: Alkaline Phosphatase 101 U/L (45-117); Bilirubin, Total 0.3 mg/dL (0.2-1.0); Total Protein 7.1 g/dL (6.4-8.2)
[2020-09-24 06:52] LABS: Band Neutrophils % (manual) 1; Eosinophils % (manual) 5 (0-7); Lymphocytes % (manual) 56 (10.0-50.0); Monocytes % (manual) 1 (0-12)
[2020-09-24] MEDS: ACCU-CHEK COMFORT CURVE STRIP VI SCH ×4 (06:53→21:54)
[2020-09-24] MEDS: INSULIN LANTUS (GLARGINE) 1 /0.01ml (100units/ml) SC SCH (06:56)
[2020-09-24] MEDS ORDERED: INFLUENZA QUAD 2020-2021 0.5 ML SYRG IM ONE (08:00)
[2020-09-24 09:00] VITALS: BP 110/66
[2020-09-24] MEDS: ZINC SULFATE 220mg CAP or TAB PO SCH (09:50)
[2020-09-24] MEDS: MULTIPLE VITAMIN TAB PO SCH (09:51)
[2020-09-24] MEDS: ASCORBIC ACID 500 MG TAB PO SCH ×2 (09:51→21:54)
[2020-09-24] MEDS: METHADONE HCL 10 MG TAB PO SCH (09:51)
[2020-09-24] MEDS: ENOXAPARIN SOD 40 MG/0.4 ML SYRINGE SC SCH (09:53)
[2020-09-24] MEDS ORDERED: METHADONE HCL 10 MG TAB PO SCH (10:00)
[2020-09-24] MEDS ORDERED: FAMOTIDINE (10MG/ML) 2ML VL IV ONE (11:00)
[2020-09-24 12:24] VITALS: BP 125/72
[2020-09-24 17:00] VITALS: BP 125/79
[2020-09-24 22:00] VITALS: BP 133/88
[2020-09-25] MEDS: MORPHINE SULFATE 4 MG/ML SYR/VIAL IV PRN ×2 (01:37→05:50)
[2020-09-25 05:00] VITALS: BP 121/75
[2020-09-25 05:59] LABS: Potassium 3.7 mmol/L (3.5-5.1)
[2020-09-25 06:04] LABS: Hematocrit 32.7 % (36.0-46.0); Hemoglobin 11.4 g/dL (12.2-16.2); Mean Corpuscular Hemoglobin 29.2 pg (28.0-32.0); Mean Corpuscular Hgb Conc. 34.9 g/dL (32.0-36.0); Mean Corpuscular Volume 83.7 fL (80.0-100.0); Red Blood Cells 3.91 10^6/uL (4.0-5.20); Red Cell Distribution Width 14.9 % (11.8-14.3)
[2020-09-25 06:20] LABS: Band Neutrophils % (manual) 0; Basophils % (manual) 0 (0.0-2.0); Blast Cells 0; Metamyelocytes % 0; Myelocytes % 0; Promyelocytes % 0; Reactive Lymphocytes 0
[2020-09-25 06:25] LABS: BUN/Creatinine Ratio 18.3; Calcium 8.4 mg/dL (8.5-10.1); Magnesium 1.6 mg/dL (1.6-2.6)
[2020-09-25] MEDS: ACCU-CHEK COMFORT CURVE STRIP VI SCH ×2 (06:41→12:11)
[2020-09-25] MEDS: InsuLIN REG 1unit/0.01ml Soln (100units/ml) SC SCH ×2 (06:41→12:12)
[2020-09-25] MEDS: INSULIN LANTUS (GLARGINE) 1 /0.01ml (100units/ml) SC SCH (06:42)
[2020-09-25 06:58] LABS: Eosinophils % (manual) 8 (0-7); Lymphocytes % (manual) 53 (10.0-50.0); Monocytes % (manual) 4 (0-12)
[2020-09-25] MEDS: SODIUM CHLORIDE 0.9% 1,000 ML IV SCH (09:19)
[2020-09-25 09:36] VITALS: BP 115/77
[2020-09-25] MEDS: ZINC SULFATE 220mg CAP or TAB PO SCH (09:55)
[2020-09-25] MEDS: MULTIPLE VITAMIN TAB PO SCH (09:55)
[2020-09-25] MEDS: ASCORBIC ACID 500 MG TAB PO SCH (09:55)
[2020-09-25] MEDS: METHADONE HCL 10 MG TAB PO SCH (09:55)
[2020-09-25] MEDS: ENOXAPARIN SOD 40 MG/0.4 ML SYRINGE SC SCH (09:55)
[2020-09-25] MEDS ORDERED: FAMOTIDINE (10MG/ML) 2ML VL IV SCH (10:00)
[2020-09-25 12:51] VITALS: BP 133/78
[2020-09-25 12:58] VITALS: BP 135/94
[2020-12-20] MEDS ORDERED: INSU100I44 SC (08:50)
[2020-12-20] MEDS ORDERED: INSLANTI SC (08:50)
[2020-12-20] MEDS ORDERED: FOLI1TAB6 PO (08:50)
[2020-12-20] MEDS ORDERED: THIA100T5 PO (08:50)
== END 2020-09-25 14:00 | disposition home or self-care (01) | DRG 420 ==
LOC: ER 00:10 → EDBD 00:10 → TELE 05:42 → TELE-EAST 15:11
PROVIDERS: ADMIT Nurse Practitioner Family; ATTEND Internal Medicine
DX: E10.10 Type 1 diabetes mellitus with ketoacidosis without coma (principal); N17.0 Acute kidney failure with tubular necrosis; E88.09 Other disorders of plasma-protein metabolism, not elsewhere classified; I10 Essential (primary) hypertension; Z20.822 Contact with and (suspected) exposure to COVID-19; F11.10 Opioid abuse, uncomplicated; F17.210 Nicotine dependence, cigarettes, uncomplicated; F32.9 Major depressive disorder, single episode, unspecified; F41.9 Anxiety disorder, unspecified; R74.01 Elevation of levels of liver transaminase levels; G89.4 Chronic pain syndrome; Z59.0 Homelessness; Z79.4 Long term (current) use of insulin; Z82.49 Family history of ischemic heart disease and other diseases of the circulatory system; Z91.14 Patient's other noncompliance with medication regimen; Z91.19 Patient's noncompliance with other medical treatment and regimen; Z83.3 Family history of diabetes mellitus
CPT/HCPCS: 36415; 80048; 80053; 80307; 81001; 82010; 82962; 83735; 84100; 84702; 85007; 85025; 85027; 87426; 96361; 96365; 96375; G0378; J1815; J2405; J3490

== ENCOUNTER 2020-12-10 11:57 | Inpatient (IN) | payer MEDICAID ==
[~2020-12-10] VITALS: Ht 172.7 cm; Wt 68.0 kg
[~2020-12-10 11:57] MED LIST changes: -INSLANTI SC; -NITR-87 PO
[2020-12-10] MEDS ORDERED: ONDANSETRON HCL 4 MG/2 ML VIAL IV ONE ×2 (12:30→14:00)
[2020-12-10] MEDS ORDERED: MORPHINE SULFATE INJECTION 2 MG/ML SYRG IV ONE (12:30)
[2020-12-10 13:09] LABS: Basophils # (auto) 0.1 10 ^3/uL (0-0.2); Basophils % (auto) 0.6 % (0.0-2.0); Eosinophils # (auto) 0 10 ^3/uL (0-0.8); Eosinophils % (auto) 0.2 % (0.0-7.0); Hematocrit 40.1 % (36.0-46.0); Hemoglobin 12.7 g/dL (12.2-16.2); Lymphocytes # (auto) 1.4 10 ^3/uL (0.4-5.4); Lymphocytes % (auto) 14.3 % (10.0-50.0); Mean Corpuscular Hemoglobin 29.7 pg (28.0-32.0); Mean Corpuscular Hgb Conc. 31.7 g/dL (32.0-36.0); Mean Corpuscular Volume 93.7 fL (80.0-100.0); Monocytes # (auto) 0.3 10 ^3/uL (0-1.3); Monocytes % (auto) 2.7 % (0.0-12.0); Neutrophils # (auto) 7.8 10 ^3/uL (1.6-8.6); Neutrophils % (auto) 82.2 % (37.0-80.0); Nucleated Red Blood Cells % 0.1 %; Red Blood Cells 4.28 10^6/uL (4.0-5.20); Red Cell Distribution Width 14.4 % (11.8-14.3); White Blood Cell 9.5 10^3/uL (4.4-10.8)
[2020-12-10 13:19] LABS: Potassium 5.4 mmol/L (3.5-5.1)
[2020-12-10 13:25] LABS: Albumin 3.1 g/dL (3.4-5.0); Bilirubin, Total 0.6 mg/dL (0.2-1.0); Calcium 9.8 mg/dL (8.5-10.1); Total Protein 7.6 g/dL (6.4-8.2)
[2020-12-10] MEDS ORDERED: SODIUM CHLORIDE 0.9% 1,000 ML IVB ONE (13:45)
[2020-12-10] MEDS ORDERED: PROMETHAZINE HCL 25 MG/ML 1ML IV ONE (15:30)
[2020-12-10] MEDS ORDERED: DEXTROSE (50%) 50ML SYRG IV PRN ×2 (16:15→18:15)
[2020-12-10] MEDS ORDERED: INSULIN LANTUS (GLARGINE) 1 /0.01ml (100units/ml) SC ONE ×2 (16:15→18:00)
[2020-12-10] MEDS: InsuLIN R (HUMAN) 100 UNITS in SODIUM CHL 0.9% 99 ML IV SCH ×4 (16:28→22:39)
[2020-12-10] MEDS: ACCU-CHEK COMFORT CURVE STRIP VI SCH ×9 (16:33→22:37)
[2020-12-10 17:24] LABS: Urine Bacteria NONE SEEN /hpf (None Seen); Urine Blood Negative /uL (Negative); Urine Specific Gravity 1.026 (1.001-1.035); Urine WBC <1 /hpf (0 - 5)
[2020-12-10 17:32] LABS: Alcohol, Urine < 3.0 mg/dL (0-10); Amphetamine Screen, Urine NEGATIVE (NEGATIVE); Benzodiazephine Screen, Urine NEGATIVE (NEGATIVE); Cannabinoid Screen, Urine NEGATIVE (NEGATIVE); Cocaine Screen, Urine NEGATIVE (NEGATIVE); Opiate Scree,Urine NEGATIVE (NEGATIVE); Phencyclidine Screen, Urine NEGATIVE (NEGATIVE)
[2020-12-10 17:38] LABS: Barbiturate Scree,Urine NEGATIVE (NEGATIVE)
[2020-12-10] MEDS ORDERED: NITROGLYCERIN 0.4 MG SL TAB SL PRN (17:45)
[2020-12-10] MEDS ORDERED: MORPHINE SULFATE INJECTION 2 MG/ML SYRG IV PRN (17:45)
[2020-12-10] MEDS: SODIUM CHLORIDE 0.9% 1,000 ML IV SCH ×2 (18:00→20:40)
[2020-12-10] MEDS ORDERED: traMADol HCL 50 MG TAB PO PRN (18:15)
[2020-12-10] MEDS ORDERED: ACETAMINOPHEN 500 MG TAB PO PRN (18:15)
[2020-12-10] MEDS ORDERED: PROMETHAZINE HCL 25 MG/ML 1ML IV PRN (18:15)
[2020-12-10 19:35] LABS: Anion Gap 25 (5-15); Blood Urea Nitrogen 25 mg/dL (7-18); Calcium 8.4 mg/dL (8.5-10.1); Chloride 100 mmol/L (98-107); GFR African American 59 mL/min; GFR Non-African American 49 mL/min; Potassium 5.4 mmol/L (3.5-5.1); Sodium 134 mmol/L (136-145)
[2020-12-10 19:39] LABS: Amylase 39 U/L (25-115); Lipase 77 U/L (73-393)
[2020-12-10 20:19] LABS: Carbon Dioxide 9 mmol/L (21-32); Glucose 664 mg/dL (74-106)
[2020-12-10] MEDS ORDERED: SODIUM CHLORIDE 0.9% 1,000 ML IV SCH (22:00)
[2020-12-10] MEDS ORDERED: ALBUMIN 5% 250 ML IV ONE (22:15)
[2020-12-10 23:17] LABS: BUN/Creatinine Ratio 15.2; Calcium 7.3 mg/dL (8.5-10.1); Potassium 3.8 mmol/L (3.5-5.1)
[2020-12-11] MEDS: ACCU-CHEK COMFORT CURVE STRIP VI SCH ×11 (00:12→08:10)
[2020-12-11] MEDS: InsuLIN R (HUMAN) 100 UNITS in SODIUM CHL 0.9% 99 ML IV SCH ×2 (00:13→01:59)
[2020-12-11] MEDS: SODIUM CHLORIDE 0.9% 1,000 ML IV SCH ×2 (00:32→06:51)
[2020-12-11 07:10] LABS: Basophils # (auto) 0 10 ^3/uL (0-0.2); Basophils % (auto) 0.2 % (0.0-2.0); Eosinophils # (auto) 0.1 10 ^3/uL (0-0.8); Eosinophils % (auto) 0.5 % (0.0-7.0); Hematocrit 36.3 % (36.0-46.0); Hemoglobin 11.8 g/dL (12.2-16.2); Lymphocytes # (auto) 4.1 10 ^3/uL (0.4-5.4); Lymphocytes % (auto) 37.5 % (10.0-50.0); Mean Corpuscular Hemoglobin 28.8 pg (28.0-32.0); Mean Corpuscular Hgb Conc. 32.5 g/dL (32.0-36.0); Mean Corpuscular Volume 88.6 fL (80.0-100.0); Monocytes # (auto) 0.8 10 ^3/uL (0-1.3); Monocytes % (auto) 7.1 % (0.0-12.0); Neutrophils % (auto) 54.7 % (37.0-80.0); Nucleated Red Blood Cells % 0.1 %; Red Blood Cells 4.09 10^6/uL (4.0-5.20)
[2020-12-11 07:24] LABS: Albumin 2.5 g/dL (3.4-5.0); BUN/Creatinine Ratio 15.6; Calcium 8.2 mg/dL (8.5-10.1); Potassium 3.8 mmol/L (3.5-5.1)
[2020-12-11 07:26] LABS: Bilirubin, Total 0.2 mg/dL (0.2-1.0)
[2020-12-11] MEDS ORDERED: DEXTROSE (50%) 50ML SYRG IV PRN (09:00)
[2020-12-11] MEDS ORDERED: SOD CHL 0.45% 1,000 ML IV SCH (09:00)
[2020-12-11] MEDS ORDERED: INSULIN LANTUS (GLARGINE) 1 /0.01ml (100units/ml) SC SCH ×2 (10:00)
[2020-12-11] MEDS ORDERED: FAMOTIDINE (10MG/ML) 2ML VL IV SCH (10:00)
[2020-12-11 10:22] LABS: Anion Gap 10 (5-15); Blood Urea Nitrogen 15 mg/dL (7-18); Calcium 7.9 mg/dL (8.5-10.1); Carbon Dioxide 21 mmol/L (21-32); Chloride 112 mmol/L (98-107); GFR African American 87 mL/min; GFR Non-African American 72 mL/min; Glucose 158 mg/dL (74-106); Potassium 3.7 mmol/L (3.5-5.1); Sodium 143 mmol/L (136-145)
[2020-12-11] MEDS ORDERED: InsuLIN REG 1unit/0.01ml Soln (100units/ml) SC SCH (12:00)
[2020-12-11] MEDS ORDERED: ACCU-CHEK COMFORT CURVE STRIP VI SCH (12:00)
[2020-12-11] MEDS ORDERED: INSLANTI SC (12:21)
[2020-12-11] MEDS ORDERED: DOCU-94 PO (12:21)
[2020-12-11] MEDS ORDERED: INSU100I44 SC (12:21)
[2020-12-11 12:28] VITALS: BP 102/64
[2020-12-20] MEDS ORDERED: FOLI1TAB6 PO (08:50)
[2020-12-20] MEDS ORDERED: INSU100I44 SC (08:50)
[2020-12-20] MEDS ORDERED: INSLANTI SC (08:50)
[2020-12-20] MEDS ORDERED: THIA100T5 PO (08:50)
== END 2020-12-11 13:12 | disposition home or self-care (01) | DRG 420 ==
LOC: ER 11:57 → EDBD 11:57 → TELE 17:45
PROVIDERS: ADMIT Internal Medicine; ATTEND Internal Medicine
DX: E10.10 Type 1 diabetes mellitus with ketoacidosis without coma (principal); N17.0 Acute kidney failure with tubular necrosis; E86.0 Dehydration; E87.5 Hyperkalemia; F11.90 Opioid use, unspecified, uncomplicated; F17.210 Nicotine dependence, cigarettes, uncomplicated; Z20.822 Contact with and (suspected) exposure to COVID-19; K59.01 Slow transit constipation; Z59.0 Homelessness; Z79.4 Long term (current) use of insulin; Z91.19 Patient's noncompliance with other medical treatment and regimen; F41.9 Anxiety disorder, unspecified; Z82.49 Family history of ischemic heart disease and other diseases of the circulatory system; E87.1 Hypo-osmolality and hyponatremia
CPT/HCPCS: 36415; 36600; 71045; 74176; 80048; 80053; 80307; 81001; 82150; 82805; 82962; 83036; 83690; 83735; 84702; 85025; 87426; 93005; 96361; 96372; 96374; 96375; G0378; J1815; J3490

== ENCOUNTER 2020-12-22 09:01 | Inpatient (IN) | payer MEDICAID ==
[~2020-12-22] VITALS: Ht 165.1 cm; Wt 55.3 kg
[~2020-12-22 09:01] MED LIST changes: +FOLI1TAB6 PO; +INSLANTI SC; +THIA100T5 PO
[2020-12-22 10:50] LABS: Basophils # (auto) 0.1 10 ^3/uL (0-0.2); Basophils % (auto) 0.8 % (0.0-2.0); Eosinophils # (auto) 0 10 ^3/uL (0-0.8); Eosinophils % (auto) 0.2 % (0.0-7.0); Hematocrit 41.9 % (36.0-46.0); Hemoglobin 13.1 g/dL (12.2-16.2); Lymphocytes # (auto) 1.5 10 ^3/uL (0.4-5.4); Lymphocytes % (auto) 17.1 % (10.0-50.0); Mean Corpuscular Hgb Conc. 31.3 g/dL (32.0-36.0); Mean Corpuscular Volume 95.8 fL (80.0-100.0); Monocytes # (auto) 0.2 10 ^3/uL (0-1.3); Monocytes % (auto) 2.4 % (0.0-12.0); Neutrophils % (auto) 79.5 % (37.0-80.0); Nucleated Red Blood Cells % 0.1 %; Red Blood Cells 4.38 10^6/uL (4.0-5.20); Red Cell Distribution Width 14.9 % (11.8-14.3); White Blood Cell 8.7 10^3/uL (4.4-10.8)
[2020-12-22 11:09] LABS: Potassium 5.5 mmol/L (3.5-5.1)
[2020-12-22 11:17] LABS: Albumin 3.1 g/dL (3.4-5.0); BUN/Creatinine Ratio 17.1; Bilirubin, Total 0.6 mg/dL (0.2-1.0); Calcium 9.4 mg/dL (8.5-10.1); Total Protein 7.6 g/dL (6.4-8.2)
[2020-12-22] MEDS ORDERED: INSULIN LANTUS (GLARGINE) 1 /0.01ml (100units/ml) SC ONE (12:15)
[2020-12-22] MEDS ORDERED: InsuLIN R (HUMAN) 100 UNITS in SODIUM CHL 0.9% 99 ML IV SCH (12:15)
[2020-12-22] MEDS ORDERED: DEXTROSE (50%) 50ML SYRG IV PRN (12:15)
[2020-12-22] MEDS ORDERED: HYDROcodone-ACET 5/325MG TAB PO PRN (14:15)
[2020-12-22] MEDS ORDERED: ONDANSETRON HCL 4 MG/2 ML VIAL IV PRN (14:15)
[2020-12-22] MEDS ORDERED: ACETAMINOPHEN 325 MG TAB PO PRN (14:15)
[2020-12-22] MEDS ORDERED: MORPHINE SULFATE INJECTION 2 MG/ML SYRG IV PRN (14:15)
[2020-12-22] MEDS ORDERED: D5W/SOD CHLO 0.9% 1,000 ML IV ONE (14:15)
[2020-12-22 15:20] LABS: Urine WBC None Seen /hpf (0 - 5)
[2020-12-22] MEDS: ACCU-CHEK COMFORT CURVE STRIP VI SCH ×12 (15:26→23:10)
[2020-12-22] MEDS ORDERED: InsuLIN REG 1unit/0.01ml Soln (100units/ml) ONE (15:31)
[2020-12-22 15:41] LABS: Urine Bacteria NONE SEEN /hpf (None Seen); Urine Blood Negative /uL (Negative); Urine Specific Gravity 1.023 (1.001-1.035)
[2020-12-22] MEDS: SODIUM CHLORIDE 0.9% 1,000 ML IV SCH (15:42)
[2020-12-22 16:07] LABS: BUN/Creatinine Ratio 17.3; Calcium 8.2 mg/dL (8.5-10.1); Potassium 5.3 mmol/L (3.5-5.1)
[2020-12-22] MEDS ORDERED: SODIUM CHLORIDE 0.9% 1,000 ML IV ONE (21:00)
[2020-12-22] MEDS ORDERED: D5W/SOD CHLO 0.9% 1,000 ML IV SCH (22:45)
[2020-12-22 23:59] LABS: BUN/Creatinine Ratio 14.3; Potassium 4.1 mmol/L (3.5-5.1)
[2020-12-23] MEDS: SODIUM CHLORIDE 0.9% 1,000 ML IV SCH ×2 (00:15→02:57)
[2020-12-23] MEDS: ACCU-CHEK COMFORT CURVE STRIP VI SCH ×5 (00:20→12:10)
[2020-12-23 00:24] LABS: Anion Gap 14 (5-15); Carbon Dioxide 17 mmol/L (21-32); Chloride 112 mmol/L (98-107); Glucose 131 mg/dL (74-106); Potassium 4.1 mmol/L (3.5-5.1); Sodium 143 mmol/L (136-145)
[2020-12-23 00:25] LABS: BUN/Creatinine Ratio 14.3; Blood Urea Nitrogen 18 mg/dL (7-18); GFR African American 67 mL/min; GFR Non-African American 55 mL/min
[2020-12-23 02:35] LABS: BUN/Creatinine Ratio 15.7; Calcium 8.1 mg/dL (8.5-10.1); Potassium 3.9 mmol/L (3.5-5.1)
[2020-12-23] MEDS ORDERED: DEXTROSE (50%) 50ML SYRG IV PRN (03:00)
[2020-12-23] MEDS: InsuLIN REG 1unit/0.01ml Soln (100units/ml) SC SCH ×2 (06:00→12:10)
[2020-12-23 07:28] LABS: BUN/Creatinine Ratio 15.8; Calcium 7.9 mg/dL (8.5-10.1); Potassium 3.5 mmol/L (3.5-5.1)
[2020-12-23 08:40] VITALS: BP 106/70
[2020-12-23 08:42] VITALS: BP 106/70
[2020-12-23] MEDS ORDERED: TRAZ100T3 PO (09:09)
[2020-12-23] MEDS ORDERED: METH-973 PO (09:09)
[2020-12-23] MEDS ORDERED: INSULIN LANTUS (GLARGINE) 1 /0.01ml (100units/ml) SC SCH ×2 (10:00→12:15)
[2020-12-23] MEDS ORDERED: INSU1INJ19 SC (12:10)
[2020-12-23] MEDS ORDERED: INSU100I44 SC (12:10)
[2020-12-23 12:40] VITALS: BP 112/64
== END 2020-12-23 15:33 | disposition home health service (06) | DRG 420 ==
LOC: EDUNIT# 09:01 → ER 09:01 → EDBD 09:01 → TELE 14:02 → TELE-WESTW 12-23 07:55
PROVIDERS: ADMIT Internal Medicine; ATTEND Internal Medicine
PROC: 06HM33Z Insertion of Infusion Device into Right Femoral Vein, Percutaneous Approach (ICD-10-PCS; principal; 2020-12-22)
DX: E11.10 Type 2 diabetes mellitus with ketoacidosis without coma (principal); F17.210 Nicotine dependence, cigarettes, uncomplicated; E11.22 Type 2 diabetes mellitus with diabetic chronic kidney disease; N18.30 Chronic kidney disease, stage 3 unspecified; F32.9 Major depressive disorder, single episode, unspecified; F41.9 Anxiety disorder, unspecified; G89.4 Chronic pain syndrome; Z59.0 Homelessness; Z20.822 Contact with and (suspected) exposure to COVID-19
CPT/HCPCS: 36415; 36556; 80048; 80053; 81001; 82010; 82962; 85025; 87426; 96365; 96366; 96372; 99291; G0378; J1815

== ENCOUNTER 2021-02-23 09:04 | Inpatient (IN) | payer MEDICAID ==
[~2021-02-23] VITALS: Ht 170.2 cm; Wt 53.8 kg
[~2021-02-23 09:04] MED LIST changes: -INSLANTI SC; +INSU1INJ19 SC; +METH-973 PO; -METH10T PO; +TRAZ100T3 PO
[2021-02-23 10:06] LABS: Albumin 3.7 g/dL (3.4-5.0)
[2021-02-23 10:07] LABS: Basophils # (auto) 0 10 ^3/uL (0-0.2); Basophils % (auto) 0.5 % (0.0-2.0); Eosinophils # (auto) 0 10 ^3/uL (0-0.8); Eosinophils % (auto) 0.2 % (0.0-7.0); Hematocrit 45.4 % (36.0-46.0); Hemoglobin 14.1 g/dL (12.2-16.2); Lymphocytes # (auto) 2.4 10 ^3/uL (0.4-5.4); Lymphocytes % (auto) 25.1 % (10.0-50.0); Mean Corpuscular Hemoglobin 29.9 pg (28.0-32.0); Mean Corpuscular Hgb Conc. 31.1 g/dL (32.0-36.0); Mean Corpuscular Volume 96.1 fL (80.0-100.0); Monocytes # (auto) 0.2 10 ^3/uL (0-1.3); Monocytes % (auto) 2.1 % (0.0-12.0); Neutrophils % (auto) 72.1 % (37.0-80.0); Nucleated Red Blood Cells % 0.1 %; Red Blood Cells 4.73 10^6/uL (4.0-5.20); Red Cell Distribution Width 14.3 % (11.8-14.3); White Blood Cell 9.6 10^3/uL (4.4-10.8)
[2021-02-23 10:16] LABS: BUN/Creatinine Ratio 19.3; Bilirubin, Total 0.4 mg/dL (0.2-1.0)
[2021-02-23 10:44] LABS: Potassium 5.7 mmol/L (3.5-5.1)
[2021-02-23] MEDS ORDERED: ONDANSETRON HCL 4 MG/2 ML VIAL ONE (10:49)
[2021-02-23] MEDS ORDERED: INSULIN LANTUS (GLARGINE) 1 /0.01ml (100units/ml) SC ONE ×2 (11:00→14:30)
[2021-02-23] MEDS ORDERED: ONDANSETRON HCL 4 MG/2 ML VIAL IV ONE (11:00)
[2021-02-23] MEDS ORDERED: SODIUM CHLORIDE 0.9% 1,000 ML IV ONE (11:00)
[2021-02-23] MEDS ORDERED: DEXTROSE (50%) 50ML SYRG IV PRN ×2 (11:00→14:30)
[2021-02-23] MEDS: SODIUM CHLORIDE 0.9% 1,000 ML IV SCH ×5 (11:53→21:30)
[2021-02-23 11:57] LABS: Magnesium 2.2 mg/dL (1.6-2.6); Phosphorus 4.8 mg/dL (2.5-4.90)
[2021-02-23] MEDS: InsuLIN R (HUMAN) 100 UNITS in SODIUM CHL 0.9% 99 ML IV SCH ×2 (12:32→13:41)
[2021-02-23 12:33] LABS: Urine Bacteria NONE SEEN /hpf (None Seen); Urine Blood Negative /uL (Negative); Urine Mucus FEW (None Seen); Urine Specific Gravity 1.025 (1.001-1.035); Urine WBC <1 /hpf (0 - 5)
[2021-02-23] MEDS: ACCU-CHEK COMFORT CURVE STRIP VI SCH ×10 (12:33→21:03)
[2021-02-23] MEDS ORDERED: SODIUM BICARBONATE 8.4 % INJ 50ML VIAL IV ONE (13:45)
[2021-02-23] MEDS ORDERED: METOCLOPRAMIDE HCL 5MG/ml INJ 2ml VIAL IV PRN (14:30)
[2021-02-23] MEDS ORDERED: MORPHINE SULFATE INJECTION 2 MG/ML SYRG IV PRN (14:30)
[2021-02-23] MEDS ORDERED: NITROGLYCERIN 0.4 MG SL TAB SL PRN (14:30)
[2021-02-23] MEDS ORDERED: InsuLIN R (HUMAN) 100 UNITS in SODIUM CHL 0.9% 99 ML IV SCH ×2 (14:30→21:15)
[2021-02-23] MEDS ORDERED: POTASSIUM CHL 20MEQ/100ML 100 ML IV PRN (14:30)
[2021-02-23] MEDS ORDERED: POTASSIUM CHL 10MEQ/100ML 300 ML IV PRN (14:30)
[2021-02-23] MEDS ORDERED: SODIUM CHLORIDE 0.9% 1,000 ML IV SCH ×3 (15:00→18:30)
[2021-02-23 15:53] LABS: Calcium 7.7 mg/dL (8.5-10.1); Magnesium 2.4 mg/dL (1.6-2.6); Potassium 3.8 mmol/L (3.5-5.1)
[2021-02-23 15:56] LABS: Phosphorus 2.3 mg/dL (2.5-4.90)
[2021-02-23] MEDS ORDERED: MAGNESIUM SULFATE 1GM/100ML 200 ML IV ONE (16:39)
[2021-02-23] MEDS: FAMOTIDINE (10MG/ML) 2ML VL IV SCH (22:16)
[2021-02-23 22:22] LABS: BUN/Creatinine Ratio 20.4; Calcium 7.6 mg/dL (8.5-10.1); Potassium 3.3 mmol/L (3.5-5.1)
[2021-02-23 23:55] VITALS: BP 111/66
[2021-02-24] MEDS: InsuLIN REG 1unit/0.01ml Soln (100units/ml) SC SCH ×6 (00:11→21:19)
[2021-02-24] MEDS: ACCU-CHEK COMFORT CURVE STRIP VI SCH ×6 (00:11→21:22)
[2021-02-24] MEDS ORDERED: METH5TAB2 PO (01:16)
[2021-02-24] MEDS ORDERED: INSU1INJ19 SC ×2 (01:16→18:24)
[2021-02-24] MEDS ORDERED: INSU100I26 SC ×2 (01:21→01:22)
[2021-02-24 02:35] LABS: BUN/Creatinine Ratio 20.4; Calcium 7.9 mg/dL (8.5-10.1); Potassium 3.7 mmol/L (3.5-5.1)
[2021-02-24] MEDS: SODIUM CHLORIDE 0.9% 1,000 ML IV SCH ×4 (03:10→21:17)
[2021-02-24 05:00] VITALS: BP 103/72
[2021-02-24 09:00] VITALS: BP 100/70
[2021-02-24] MEDS: FAMOTIDINE (10MG/ML) 2ML VL IV SCH (09:26)
[2021-02-24 09:48] LABS: Potassium 3.8 mmol/L (3.5-5.1)
[2021-02-24 09:59] LABS: BUN/Creatinine Ratio 18.4; Calcium 7.5 mg/dL (8.5-10.1)
[2021-02-24] MEDS ORDERED: INSULIN LANTUS (GLARGINE) 1 /0.01ml (100units/ml) SC SCH ×2 (10:00)
[2021-02-24 13:00] VITALS: BP 107/74
[2021-02-24 13:23] LABS: Basophils # (auto) 0 10 ^3/uL (0-0.2); Basophils % (auto) 0.3 % (0.0-2.0); Eosinophils # (auto) 0 10 ^3/uL (0-0.8); Eosinophils % (auto) 0.3 % (0.0-7.0); Hemoglobin 10.3 g/dL (12.2-16.2); Lymphocytes # (auto) 2.5 10 ^3/uL (0.4-5.4); Lymphocytes % (auto) 30.2 % (10.0-50.0); Mean Corpuscular Hemoglobin 30.1 pg (28.0-32.0); Mean Corpuscular Hgb Conc. 33.2 g/dL (32.0-36.0); Mean Corpuscular Volume 90.8 fL (80.0-100.0); Monocytes # (auto) 0.4 10 ^3/uL (0-1.3); Monocytes % (auto) 4.9 % (0.0-12.0); Neutrophils # (auto) 5.3 10 ^3/uL (1.6-8.6); Neutrophils % (auto) 64.3 % (37.0-80.0); Nucleated Red Blood Cells % 0.1 %; Red Blood Cells 3.42 10^6/uL (4.0-5.20); Red Cell Distribution Width 13.8 % (11.8-14.3); White Blood Cell 8.2 10^3/uL (4.4-10.8)
[2021-02-24 13:28] LABS: BUN/Creatinine Ratio 14.8; Potassium 3.9 mmol/L (3.5-5.1)
[2021-02-24 13:29] LABS: Calcium 7.5 mg/dL (8.5-10.1)
[2021-02-24 16:38] VITALS: BP 99/65
[2021-02-24] MEDS ORDERED: INSU100I44 SC (18:24)
[2021-02-24] MEDS: ACETAMINOPHEN 500 MG TAB PO PRN (21:17)
[2021-02-24 22:00] VITALS: BP 105/70
[2021-02-25] MEDS: ACCU-CHEK COMFORT CURVE STRIP VI SCH ×2 (04:08→08:01)
[2021-02-25] MEDS: InsuLIN REG 1unit/0.01ml Soln (100units/ml) SC SCH ×2 (04:09→08:01)
[2021-02-25] MEDS: ACETAMINOPHEN 500 MG TAB PO PRN (04:14)
[2021-02-25 05:07] VITALS: BP 126/92
[2021-02-25] MEDS: SODIUM CHLORIDE 0.9% 1,000 ML IV SCH (06:27)
[2021-02-25 09:00] VITALS: BP 111/74
== END 2021-02-25 10:59 | disposition home or self-care (01) | DRG 420 ==
LOC: ER 09:04 → EDBD 09:04 → TELE 14:25 → TELE-CENTR 23:55
PROVIDERS: ADMIT Hospitalist; ATTEND Hospitalist
DX: E10.10 Type 1 diabetes mellitus with ketoacidosis without coma (principal); E86.0 Dehydration; F17.210 Nicotine dependence, cigarettes, uncomplicated; F32.A Depression, unspecified; F41.9 Anxiety disorder, unspecified; Z20.822 Contact with and (suspected) exposure to COVID-19; Z82.49 Family history of ischemic heart disease and other diseases of the circulatory system; Z59.00 Homelessness unspecified; Z83.3 Family history of diabetes mellitus; Z91.14 Patient's other noncompliance with medication regimen
CPT/HCPCS: 36415; 36600; 71045; 80048; 80053; 81001; 82010; 82805; 82962; 83735; 83930; 84100; 85025; 87426; 93005; 96361; 96365; 96366; 96368; 96372; 96375; 99291; G0378; J1815; J2405; J3490